=== PATIENT | male | born 1970 | race Caucasian/White ===

== ENCOUNTER 2018-09-30 18:04 | Emergency (ER) | payer MEDICAID ==
[~2018-09-30] VITALS: Ht 172.7 cm; Wt 122.7 kg
[2018-09-30 18:09] VITALS: BP 134/87
[2018-09-30] MEDS ORDERED: CEPH500C5 PO (18:48)
== END 2018-09-30 19:09 | disposition home or self-care (01) ==
LOC: ER 18:06
DX: T22.112A Burn of first degree of left forearm, initial encounter (principal); Z88.0 Allergy status to penicillin; Z79.899 Other long term (current) drug therapy; X10.2XXA Contact with fats and cooking oils, initial encounter; Y93.G1 Activity, food preparation and clean up; Y92.89 Other specified places as the place of occurrence of the external cause; Y99.0 Civilian activity done for income or pay
CPT/HCPCS: 99283

== ENCOUNTER 2019-09-09 13:30 | Inpatient (IN) | payer BC, OTHER ==
[~2019-09-09] VITALS: Ht 172.7 cm; Wt 84.5 kg
[2019-09-09] VITALS (12 sets, daily range): BP systolic 127–159; BP diastolic 89–124
--- NOTE | 2019-09-09 13:55 | NUR ---
Dr. Brooks notified of patient and condition.
[2019-09-09 14:09] LABS: BASOPHILS # (AUTO) 0.1 X10'3 (0-0.2); BASOPHILS % (AUTO) 0.8 % (0-1); EOSINOPHILS # (AUTO) 0.1 X10'3 (0-0.9); EOSINOPHILS % (AUTO) 1.5 % (0-6); HEMOGLOBIN 17.8 g/dl (14.0-17.9); LYMPHOCYTES # (AUTO) 2.7 X10'3 (1.1-4.8); LYMPHOCYTES % (AUTO) 29.5 % (21-51); MEAN CORPUSCULAR HEMOGLOBIN 31.2 PG (27.0-31.0); MEAN CORPUSCULAR HGB CONC 34.9 g/dL (33.0-36.5); MEAN CORPUSCULAR VOLUME 89.4 FL (78-98); MEAN PLATELET VOLUME 8.5 FL (7.4-10.4); MONOCYTES # (AUTO) 0.5 X10'3 (0-0.9); MONOCYTES % (AUTO) 5.7 % (2-12); NEUTROPHILS # (AUTO) 5.8 X10'3 (1.8-7.7); NEUTROPHILS % (AUTO) 62.5 % (42-75); PLATELET COUNT 235 X10'3 (140-440); RED CELL DISTRIBUTION WIDTH 13.5 % (11.5-14.5); WHITE BLOOD COUNT 9.2 X10'3 (4.5-11.0)
[2019-09-09] MEDS ORDERED: diltiazem 5mg/ml 5ml inj. IV ONE (14:10)
[2019-09-09 14:19] LABS: ALANINE AMINOTRANSFERASE 47 U/L (12-78); ALBUMIN/GLOBULIN RATIO 1.2 (1.1-1.5); ALKALINE PHOSPHATASE 52 IU/L (46-116); ANION GAP 12 (8-16); ASPARTATE AMINO TRANSFERASE 26 U/L (10-37); BILIRUBIN,TOTAL 0.7 MG/DL (0.1-1.0); BLOOD UREA NITROGEN 14 MG/DL (7-18); BUN/CREATININE RATIO 11.2 (5.4-32.0); CALCIUM 8.9 MG/DL (8.5-10.1); CHLORIDE 105 MMOL/L (99-107); CREATININE 1.25 MG/DL (0.60-1.10); GLUCOSE 319 MG/DL (70-104); POTASSIUM 4.2 MMOL/L (3.5-5.1); SODIUM 139 MMOL/L (135-145); TOTAL CARBON DIOXIDE 22.5 MMOL/L (24-32); TOTAL PROTEIN 7.3 G/DL (6.4-8.2); eGFR 61 ML/MIN
[2019-09-09] MEDS ORDERED: NO HOME MEDS (15:07)
[2019-09-09] MEDS ORDERED: bisacodyl 10mg suppository rectal RC PRN (16:05)
[2019-09-09] MEDS ORDERED: potassium CL 10mEq/100ml bag 100 ML IV PRN ×2 (16:05)
[2019-09-09] MEDS ORDERED: HYDROcodone/acetaminophen 10/325mg tab PO PRN (16:05)
[2019-09-09] MEDS ORDERED: aminophylline 250mg/10ml inj. IV PRN (16:05)
[2019-09-09] MEDS ORDERED: magnesium Cl slow-release 64mg tablet PO PRN (16:05)
[2019-09-09] MEDS ORDERED: magnesium hydroxide 30ml (MOM) UD suspension PO PRN (16:05)
[2019-09-09] MEDS ORDERED: acetaminophen 650mg rectal suppository RC PRN (16:05)
[2019-09-09] MEDS ORDERED: regadenoson 0.4mg/5ml syringe IV PRN (16:05)
[2019-09-09] MEDS ORDERED: morphine 2 MG/ML inj. syringe IV PRN ×2 (16:05)
[2019-09-09] MEDS ORDERED: magnesium 2GM in 50ml NS 50 ML IV PRN (16:05)
[2019-09-09] MEDS ORDERED: nitroGLYCERIN 0.4mg SUBLingual tab SL PRN (16:05)
[2019-09-09] MEDS ORDERED: acetaminophen 325mg tablet PO PRN ×2 (16:05)
[2019-09-09] MEDS ORDERED: ondansetron/PF 4mg/2ml inj IV PRN (16:05)
[2019-09-09] MEDS ORDERED: potassium Cl 20 mEq SR tablet PO PRN ×2 (16:05)
[2019-09-09] MEDS ORDERED: magnesium 4gm in 100ml NS 100 ML IV PRN (16:05)
[2019-09-09] MEDS ORDERED: metoprolol tartrate 1mg/ml inj IV PRN (16:05)
[2019-09-09] MEDS ORDERED: mag hydrox/Alum hydrox/simeth 30ml oral suspension PO PRN (16:05)
[2019-09-09] MEDS ORDERED: HYDROcodone/acetaminophen 5mg/325mg tablet PO PRN (16:05)
[2019-09-09] MEDS ORDERED: levoTHYROXINE 25mcg tablet PO SCH (16:15)
[2019-09-09] MEDS: normal saline 1000ml 1,000 ML IV SCH ×2 (16:44→19:49)
[2019-09-09] MEDS: diltiazem-NS 100mg/100ml 100 ML IV SCH (16:45)
--- NOTE | 2019-09-09 16:47 | NUR ---
Patient in room ED 5. I have received report from giuliano rivas rn and had the opportunity to ask questions and assume patient care.
--- NOTE | 2019-09-09 17:00 | NUR ---
RECEIVED PT INTO ROOM 309,ORIENTED TO SURROUNDINGS,PT DENIES PAIN,MONITER SHOWS AFIB RATE 109 AT REST ,130'S WITH EXERTION BP STABLE,CARDIZEM GTT INFUSING TO RFA @5CC/HR ALSO NS @75/HR,LUNGS CLEAR,SAO2 ON R/A=99%,SKIN CLEAR,PT AWARE NPO AFTER 2400,CALM,RELAXED AT THIS TIME
[2019-09-09 17:05] LABS: HEMOGLOBIN A1C 8.6 % (4.5-6.2)
--- NOTE | 2019-09-09 18:00 | NUR ---
Problems reprioritized. Patient report given, questions answered & plan of care reviewed with ELANA LY.
[2019-09-09] MEDS: K and/or MAG REPLACEMENT MC SCH (19:43)
[2019-09-09] MEDS: heparin, porcine 5000 units/ml vial SQ SCH (19:47)
[2019-09-09] MEDS ORDERED: MESSAGE TO PHARMACY PO ONE (21:15)
[2019-09-09] MEDS ORDERED: dextrose 50%-water 50ml dispensing syringe IV PRN ×2 (21:15)
[2019-09-09] MEDS ORDERED: glucagon, human recombinant 1mg kit SUBCUT PRN (21:15)
[2019-09-09] MEDS ORDERED: dextrose ORAL solution 15 GM/59 ML bottle PO PRN ×2 (21:15)
[2019-09-09] MEDS: insulin Lispro (HumaLOG) vial - multi-dose SQ SCH (21:43)
[2019-09-09] MEDS: insulin glargine (Lantus) pen - multi-dose SQ SCH (21:44)
[2019-09-09 23:02] LABS: CLARITY,URINE CLEAR (Clear); COLOR,URINE YELLOW (Yellow); GLUCOSE, URINE 500 mg/dl (Neg); KETONES,URINE 15 mg/dl (Neg); LEUKOCYTE ESTERASE ,URINE NEGATIVE (Neg); NITRITES, URINE NEGATIVE (Neg); OCCULT BLOOD,URINE NEGATIVE (Neg); PH,URINE 5.5 (4.8-8.0); PROTEIN,URINE TRACE mg/dl (Neg); UROBILINOGEN,URINE 0.2 E.U/dL (0.2-1.0)
[2019-09-09 23:04] LABS: UA COLLECTION TYPE CLN CATCH MIDSTREAM
[2019-09-09 23:10] LABS: BACTERIA,URINE NONE SEEN /HPF (Neg); MUCUS STRANDS MANY /LPF (Neg); RBC,URINE NONE SEEN /HPF (0-2); SQUAMOUS EPITHELIAL CELL,UR FEW /LPF (FEW); URINE AMPHETAMINE SCREEN NEGATIVE (Neg); URINE BARBITUATE SCREEN NEGATIVE (Neg); URINE BENZODIAZEPINES SCREEN NEGATIVE (Neg); URINE CANNABINOID SCREEN POSITIVE (Neg); URINE COCAINE SCREEN NEGATIVE (Neg); URINE METHADONE SCREEN NEGATIVE (Neg); URINE OPIATE SCREEN NEGATIVE (Neg); URINE PHENCYCLIDINE SCREEN NEGATIVE (Neg); WBC,URINE 0-4 /HPF (0-4)
[2019-09-10] VITALS (9 sets, daily range): BP systolic 126–181; BP diastolic 54–93
[2019-09-10 02:51] LABS: BASOPHILS # (AUTO) 0.1 X10'3 (0-0.2); BASOPHILS % (AUTO) 0.8 % (0-1); EOSINOPHILS # (AUTO) 0.1 X10'3 (0-0.9); EOSINOPHILS % (AUTO) 1.7 % (0-6); HEMATOCRIT 48.7 % (42.0-52.0); HEMOGLOBIN 16.9 g/dl (14.0-17.9); LYMPHOCYTES # (AUTO) 3.2 X10'3 (1.1-4.8); LYMPHOCYTES % (AUTO) 40.8 % (21-51); MEAN CORPUSCULAR HEMOGLOBIN 30.9 PG (27.0-31.0); MEAN CORPUSCULAR HGB CONC 34.8 g/dL (33.0-36.5); MEAN PLATELET VOLUME 8.5 FL (7.4-10.4); MONOCYTES # (AUTO) 0.5 X10'3 (0-0.9); MONOCYTES % (AUTO) 6.4 % (2-12); NEUTROPHILS % (AUTO) 50.3 % (42-75); PLATELET COUNT 200 X10'3 (140-440); RED BLOOD COUNT 5.47 X10'6 (4.70-6.10); RED CELL DISTRIBUTION WIDTH 13.6 % (11.5-14.5); WHITE BLOOD COUNT 7.9 X10'3 (4.5-11.0)
[2019-09-10 03:06] LABS: ALANINE AMINOTRANSFERASE 45 U/L (12-78); ALBUMIN 3.5 G/DL (3.4-5.0); ALBUMIN/GLOBULIN RATIO 1.2 (1.1-1.5); ALKALINE PHOSPHATASE 36 IU/L (46-116); ANION GAP 8 (8-16); ASPARTATE AMINO TRANSFERASE 21 U/L (10-37); BILIRUBIN,TOTAL 0.8 MG/DL (0.1-1.0); BLOOD UREA NITROGEN 12 MG/DL (7-18); BUN/CREATININE RATIO 10.3 (5.4-32.0); CALCIUM 8.2 MG/DL (8.5-10.1); CHLORIDE 105 MMOL/L (99-107); CREATININE 1.16 MG/DL (0.60-1.10); GLUCOSE 181 MG/DL (70-104); POTASSIUM 3.6 MMOL/L (3.5-5.1); SODIUM 140 MMOL/L (135-145); TOTAL CARBON DIOXIDE 27.5 MMOL/L (24-32); TOTAL PROTEIN 6.4 G/DL (6.4-8.2); eGFR 67 ML/MIN
[2019-09-10 03:09] LABS: CHOL/HDL RATIO 8.2 (0.00-4.99); CHOLESTEROL 229 MG/DL (0-200); HDL CHOLESTEROL 28 MG/DL (35-60); LDL CHOLESTEROL 94 MG/DL (50-100); MAGNESIUM 1.9 MG/DL (1.5-2.4); PHOSPHORUS 3.2 MG/DL (2.3-4.5); TRIGLYCERIDES 698 MG/DL (20-135)
--- NOTE | 2019-09-10 06:00 | NUR ---
Patient in room MED 309. I have received report from Morena RN & Rojelio RN and had the opportunity to ask questions and assume patient care.
--- NOTE | 2019-09-10 06:20 | NUR ---
Problems reprioritized. Patient report given, questions answered & plan of care reviewed with Alecia HUITRON.
--- NOTE | 2019-09-10 06:21 | NUR ---
ORIENTEE documentation: I have reviewed and agree with all interventions,MEDICATIONS ADMINISTERED, assessments performed and documented by AMADO ashley .
[2019-09-10] MEDS: levoTHYROXINE 25mcg tablet PO SCH (07:18)
[2019-09-10] MEDS: K and/or MAG REPLACEMENT MC SCH ×2 (07:19→20:00)
[2019-09-10] MEDS: heparin, porcine 5000 units/ml vial SQ SCH ×2 (07:19→19:31)
[2019-09-10] MEDS: insulin Lispro (HumaLOG) vial - multi-dose SQ SCH ×3 (07:30→19:31)
[2019-09-10] MEDS: diltiazem-NS 100mg/100ml 100 ML IV SCH (07:31)
[2019-09-10] MEDS ORDERED: aspirin 81mg tab.chew PO SCH (08:30)
[2019-09-10] MEDS: diltiazem 30mg tablet PO SCH ×3 (09:15→19:32)
[2019-09-10] MEDS: fenofibrate 145mg tablet PO SCH (09:15)
--- NOTE | 2019-09-10 09:17 | NUR ---
PATIENT TO NM FOR VLAD SCAN. Addendum: 09/10/19 at 1002 by Alecia Park RN PATIENT BACK FROM [facility]AD AT 0945. NO S/SX OF DISTRESS, VSS.
--- NOTE | 2019-09-10 12:14 | NUR ---
DM Consult: A1C 8.6. Pt admit w/ new onset afib RVR and hypothyroidism per MD note. Pt hx DM though does not take any meds at home per EMR. Pt/girlfriend seen by RD for written/verbal DM ed w/ RD contact information provided. Lipid panel results TG 698, Cholesterol 229, and HDL 28L; RD faxed written heart healthy diet ed w/ additional copy of contact information to the floor for pt and notified RN. Started on tricor this admit per MD. Will continue to monitor. Addendum: 09/10/19 at [address] Amended: Links added.
--- NOTE | 2019-09-10 13:14 | NUR ---
PAGED DR. MORALES PAGER ID: [phone] MESSAGE: RM [phone] JOHNSON. PLEASE CALL REGARDING VLAD FOR PT - HAD TO CANCEL DUE TO HR > 120 WITH EXERTION. THANKS ALINE CAVANAUGH [id number] Addendum: 09/10/19 at 1323 by Aline Park RN SPOKE WITH DR. MORALES ON TELEPHONE, INFORMED THAT VLAD WAS CANCELLED, CARDIZEM GTT OFF @ 1045 PER MD ORDERS, PT CURRENT RESTING HR 85, HR WITH ANY EXERTION UP TO 130-140. PO CARDIZEM GIVEN ORDERED. STATED TO CONTINUE MONITORING PT WITH GTT OFF, AND TO ALERT RAJI OVALLE OF PT CONDITION. CALLED RAJI TO INFORM AT 1320. NO NEW ORDERS RECIEVED, WILL CONTINUE TO MONITOR AND DOCUMENT CHANGES.
--- NOTE | 2019-09-10 13:27 | NUR ---
PAGER ID: [phone] MESSAGE: RM 309: SPOKE WITH RAJI OVALLE, NO CHANGE IN ORDERS OR PLAN. OK TO FEED PATIENT? THANKS ALINE CAVANAUGH [phone]
--- NOTE | 2019-09-10 18:10 | NUR ---
Patient in room MED 309. I have received report from LIANNE RN and had the opportunity to ask questions and assume patient care.
--- NOTE | 2019-09-10 18:15 | NUR ---
Problems reprioritized. Patient report given, questions answered & plan of care reviewed with Rojelio RN & ELANA Berg.
--- NOTE | 2019-09-10 18:30 | NUR ---
Patient in room MED 309. I have received report from Alecia HUITRON and had the opportunity to ask questions and assume patient care.
[2019-09-10] MEDS: normal saline 1000ml 1,000 ML IV SCH (18:43)
[2019-09-10] MEDS: omega-3 acid ethyl esters 1GM capsule PO SCH (19:32)
[2019-09-10] MEDS: atorvastatin 20mg tablet PO SCH (19:37)
[2019-09-10] MEDS: insulin glargine (Lantus) pen - multi-dose SQ SCH (21:49)
[2019-09-11 02:00] VITALS: BP 147/115
[2019-09-11] MEDS: diltiazem 30mg tablet PO SCH (02:23)
[2019-09-11 02:52] LABS: BASOPHILS % (AUTO) 0.5 % (0-1); EOSINOPHILS # (AUTO) 0.1 X10'3 (0-0.9); EOSINOPHILS % (AUTO) 1.2 % (0-6); HEMATOCRIT 49.3 % (42.0-52.0); HEMOGLOBIN 17.1 g/dl (14.0-17.9); LYMPHOCYTES # (AUTO) 2.5 X10'3 (1.1-4.8); MEAN CORPUSCULAR HGB CONC 34.7 g/dL (33.0-36.5); MEAN CORPUSCULAR VOLUME 89.4 FL (78-98); MEAN PLATELET VOLUME 8.3 FL (7.4-10.4); MONOCYTES # (AUTO) 0.4 X10'3 (0-0.9); NEUTROPHILS # (AUTO) 4.3 X10'3 (1.8-7.7); NEUTROPHILS % (AUTO) 58.3 % (42-75); PLATELET COUNT 188 X10'3 (140-440); RED BLOOD COUNT 5.51 X10'6 (4.70-6.10); RED CELL DISTRIBUTION WIDTH 13.5 % (11.5-14.5); WHITE BLOOD COUNT 7.3 X10'3 (4.5-11.0)
[2019-09-11 03:07] LABS: ALANINE AMINOTRANSFERASE 39 U/L (12-78); ALBUMIN 3.5 G/DL (3.4-5.0); ALBUMIN/GLOBULIN RATIO 1.2 (1.1-1.5); ALKALINE PHOSPHATASE 38 IU/L (46-116); ANION GAP 8 (8-16); ASPARTATE AMINO TRANSFERASE 20 U/L (10-37); BILIRUBIN,TOTAL 0.6 MG/DL (0.1-1.0); BLOOD UREA NITROGEN 10 MG/DL (7-18); BUN/CREATININE RATIO 9.2 (5.4-32.0); CALCIUM 8.2 MG/DL (8.5-10.1); CHLORIDE 107 MMOL/L (99-107); CREATININE 1.09 MG/DL (0.60-1.10); GLUCOSE 137 MG/DL (70-104); PHOSPHORUS 4.3 MG/DL (2.3-4.5); POTASSIUM 3.6 MMOL/L (3.5-5.1); SODIUM 141 MMOL/L (135-145); TOTAL CARBON DIOXIDE 25.7 MMOL/L (24-32); TOTAL PROTEIN 6.5 G/DL (6.4-8.2); eGFR 72 ML/MIN
--- NOTE | 2019-09-11 06:26 | NUR ---
Problems reprioritized. Patient report given, questions answered & plan of care reviewed with Kathrin HUITRON.
--- NOTE | 2019-09-11 06:27 | NUR ---
Orientation documentation: I have reviewed and agree with all interventions, assessments performed and documented by Morena HUITRON.
[2019-09-11] MEDS: K and/or MAG REPLACEMENT MC SCH (07:57)
[2019-09-11] MEDS ORDERED: apixaban 5mg tablet PO SCH (08:00)
[2019-09-11] MEDS ORDERED: diltiazem 30mg tablet PO SCH (08:00)
[2019-09-11] MEDS: omega-3 acid ethyl esters 1GM capsule PO SCH (08:03)
[2019-09-11] MEDS: atorvastatin 20mg tablet PO SCH (08:04)
[2019-09-11] MEDS: levoTHYROXINE 25mcg tablet PO SCH (08:04)
[2019-09-11] MEDS: fenofibrate 145mg tablet PO SCH (08:04)
[2019-09-11] MEDS ORDERED: AMA1T PO ×2 (09:47→10:33)
[2019-09-11] MEDS ORDERED: ATOR20TA66 PO (09:47)
[2019-09-11] MEDS ORDERED: DILT30TA5 PO (09:47)
[2019-09-11] MEDS ORDERED: APIX5TAB3 PO (09:47)
[2019-09-11] MEDS ORDERED: FENO145T25 PO (09:47)
[2019-09-11] MEDS ORDERED: OMEG1CAP PO (09:47)
[2019-09-11] MEDS ORDERED: LEVO25TA7 PO (09:47)
[2019-09-11] MEDS ORDERED: METF-950 PO (09:47)
[2019-09-11] MEDS ORDERED: LINA5TAB4 PO (09:47)
[2019-09-11] MEDS ORDERED: METO-539 PO (10:35)
[2019-09-11] MEDS ORDERED: ASPI-611 PO (10:35)
[2019-09-11] MEDS: insulin Lispro (HumaLOG) vial - multi-dose SQ SCH (11:05)
== END 2019-09-11 11:18 | disposition home or self-care (01) | DRG 282 ==
LOC: ER 13:31 → UNDOADMIN 16:03 → ED HOLD 16:03 → MED 3N 17:00 → ED HOLD 17:00
PROVIDERS: ADMIT Family Medicine; ATTEND Family Medicine
PROC: 4A02XM4 Measurement of Cardiac Total Activity, External Approach (ICD-10-PCS; principal; 2019-09-10)
PROC: 3E033HZ Introduction of Radioactive Substance into Peripheral Vein, Percutaneous Approach (ICD-10-PCS; 2019-09-10)
DX: I48.91 Unspecified atrial fibrillation (principal); I21.A1 Myocardial infarction type 2; I48.92 Unspecified atrial flutter; E03.9 Hypothyroidism, unspecified; E11.9 Type 2 diabetes mellitus without complications; E66.01 Morbid (severe) obesity due to excess calories; E78.1 Pure hyperglyceridemia; E78.5 Hyperlipidemia, unspecified; E86.0 Dehydration; F12.90 Cannabis use, unspecified, uncomplicated; F32.9 Major depressive disorder, single episode, unspecified; F41.9 Anxiety disorder, unspecified; I10 Essential (primary) hypertension; Z79.899 Other long term (current) drug therapy; Z80.3 Family history of malignant neoplasm of breast; Z80.0 Family history of malignant neoplasm of digestive organs; Z87.891 Personal history of nicotine dependence; Z88.0 Allergy status to penicillin; Z68.28 Body mass index [BMI] 28.0-28.9, adult
CPT/HCPCS: 36415; 71045; 78451; 80053; 80061; 80305; 81001; 82948; 83036; 83735; 84100; 84439; 84443; 84484; 85025; 87081; 93005; 93306; 96365; 96376; 99285; A9500; G0378; J1644; J1815; J3490; J7030